=== PATIENT | male | born 1990 | race Two or more races ===

== ENCOUNTER 2022-08-09 17:20 | Emergency (ER) | payer OTHER ==
[~2022-08-09] VITALS: Ht 167.6 cm; Wt 63.5 kg
== END 2022-08-09 21:13 | disposition home or self-care (01) ==
LOC: ER 17:20
DX: S42.191A Fracture of other part of scapula, right shoulder, initial encounter for closed fracture (principal); V00.131A Fall from skateboard, initial encounter; Y92.488 Other paved roadways as the place of occurrence of the external cause; Y93.I9 Activity, other involving external motion; Y99.8 Other external cause status; M25.511 Pain in right shoulder; M25.521 Pain in right elbow; M54.2 Cervicalgia; M79.631 Pain in right forearm; Z20.822 Contact with and (suspected) exposure to COVID-19